=== PATIENT | male | born 1945 | race Caucasian/White ===

== ENCOUNTER 2020-09-11 18:57 | Emergency (ER) | payer MEDICARE, OTHER ==
[~2020-09-11] VITALS: Ht 175.3 cm; Wt 115.0 kg
[~2020-09-11 18:57] MED LIST: HYDR-4353 PO; ONDA8TAB9 PO; SUCR1ORA2 PO
[2020-09-11 19:29] LABS: BASOPHILS # (AUTO) 0.1 X10'3 (0-0.2); BASOPHILS % (AUTO) 0.8 % (0-1); EOSINOPHILS # (AUTO) 0.3 X10'3 (0-0.9); EOSINOPHILS % (AUTO) 3.8 % (0-6); HEMATOCRIT 50.9 % (42.0-52.0); HEMOGLOBIN 17.1 g/dl (14.0-17.9); LYMPHOCYTES # (AUTO) 1.1 X10'3 (1.1-4.8); LYMPHOCYTES % (AUTO) 14.1 % (21-51); MEAN CORPUSCULAR HEMOGLOBIN 30.8 PG (27.0-31.0); MEAN CORPUSCULAR HGB CONC 33.5 g/dL (33.0-36.5); MEAN CORPUSCULAR VOLUME 91.9 FL (78-98); MEAN PLATELET VOLUME 7.1 FL (7.4-10.4); MONOCYTES # (AUTO) 0.8 X10'3 (0-0.9); MONOCYTES % (AUTO) 9.4 % (2-12); NEUTROPHILS # (AUTO) 5.8 X10'3 (1.8-7.7); NEUTROPHILS % (AUTO) 71.9 % (42-75); PLATELET COUNT 188 X10'3 (140-440); RED BLOOD COUNT 5.54 X10'6 (4.70-6.10); RED CELL DISTRIBUTION WIDTH 13.7 % (11.5-14.5)
[2020-09-11 19:55] LABS: ANION GAP 5 (8-16); BLOOD UREA NITROGEN 18 MG/DL (7-18); CHLORIDE 101 MMOL/L (99-107); GLUCOSE 143 MG/DL (70-104); POTASSIUM 4.6 MMOL/L (3.5-5.1); SODIUM 137 MMOL/L (135-145)
[2020-09-11 19:56] LABS: ALANINE AMINOTRANSFERASE 83 U/L (12-78); ALBUMIN 3.6 G/DL (3.4-5.0); ALKALINE PHOSPHATASE 90 IU/L (46-116); ASPARTATE AMINO TRANSFERASE 110 U/L (10-37); BILIRUBIN,TOTAL 0.6 MG/DL (0.1-1.0); BUN/CREATININE RATIO 13.1 (5.4-32.0); CALCIUM 8.8 MG/DL (8.5-10.1); CREATININE 1.37 MG/DL (0.60-1.10); TOTAL PROTEIN 7.3 G/DL (6.4-8.2); eGFR 51 ML/MIN
[2020-09-11 20:12] VITALS: BP 167/98
--- NOTE | 2020-09-11 20:28 | NUR ---
Dr. James at bedside to discuss plan of care with patient.
== END 2020-09-11 20:49 | disposition home or self-care (01) ==
LOC: ER 18:57
DX: R07.89 Other chest pain (principal); I48.91 Unspecified atrial fibrillation; I10 Essential (primary) hypertension; E11.9 Type 2 diabetes mellitus without complications; Z98.890 Other specified postprocedural states; Z72.89 Other problems related to lifestyle; Z79.899 Other long term (current) drug therapy
CPT/HCPCS: 36415; 71045; 80053; 83880; 84484; 85025; 93005; 99285

== ENCOUNTER 2020-11-28 06:59 | Day surgery (SDC) | payer MEDICARE, OTHER, BC ==
[2020-11-21 15:02] LABS: BASOPHILS # (AUTO) 0.1 X10'3 (0-0.2); BASOPHILS % (AUTO) 0.6 % (0-1); EOSINOPHILS # (AUTO) 0.1 X10'3 (0-0.9); EOSINOPHILS % (AUTO) 1.3 % (0-6); LYMPHOCYTES # (AUTO) 2.1 X10'3 (1.1-4.8); LYMPHOCYTES % (AUTO) 20.1 % (21-51); MEAN CORPUSCULAR HEMOGLOBIN 30.4 PG (27.0-31.0); MEAN CORPUSCULAR HGB CONC 33.4 g/dL (33.0-36.5); MEAN PLATELET VOLUME 7.3 FL (7.4-10.4); MONOCYTES # (AUTO) 1.2 X10'3 (0-0.9); NEUTROPHILS # (AUTO) 7.1 X10'3 (1.8-7.7); PRE OP HEMATOCRIT 48.4 % (42.0-52.0); PRE OP HEMOGLOBIN 16.2 g/dL (14.0-17.9); PRE OP PLATELET COUNT 185 X10'3 (140-440); RED BLOOD COUNT 5.31 X10'6 (4.70-6.10); RED CELL DISTRIBUTION WIDTH 14.8 % (11.5-14.5)
[2020-11-21 15:06] LABS: ALBUMIN 3.5 G/DL (3.4-5.0); ALKALINE PHOSPHATASE 63 IU/L (46-116); BLOOD UREA NITROGEN 26 MG/DL (7-18); BUN/CREATININE RATIO 17.9 (5.4-32.0); CALCIUM 9.3 MG/DL (8.5-10.1); CHLORIDE 104 MMOL/L (99-107); CREATININE 1.45 MG/DL (0.60-1.10); PRE OP ALT 40 U/L (30-65); PRE OP ANION GAP 5 (8-16); PRE OP AST 25 U/L (10-37); PRE OP BILIRUB, TOTAL 0.6 MG/DL (0.0-1.0); PRE OP GLUCOSE 118 MG/DL (70-104); PRE OP POTASSIUM 4.5 MMOL/L (3.4-5.1); PRE OP SODIUM 140 MMOL/L (135-145); TOTAL CARBON DIOXIDE 30.8 MMOL/L (24-32); eGFR 47 ML/MIN
[~2020-11-28] VITALS: Ht 175.3 cm; Wt 110.7 kg
[2020-11-28] VITALS (11 sets, daily range): BP systolic 133–185; BP diastolic 70–93
[~2020-11-28 06:59] MED LIST changes: +ASPI-612 PO; +BUPIVAcaine/PF 2.5 mg/ml (0.25%) 30ml vial ONE; +DOCUMENT DATE & TIME OF BETA-BLOCKER PO ONE; +EZET1TAB17 PO; +FEBU80TA PO; +FLEC100T2 PO; +GLIP5TAB13 PO; -HYDR-4353 PO; +INDOCYANINE GREEN 25 MG/10 ML VIAL IV ONE; +LIDOcaine 1% 30ml preserv. free vial ONE; +LOSA100T57 PO; +METF-436 PO; +METO25TA6 PO; -ONDA8TAB9 PO; -SUCR1ORA2 PO; +TEST75GE TOP; +UBIQ100C3 PO; +VITAMIN D3 PO; +ceFAZolin 2gm in dextrose, iso 50 ML IV ONE; +famotidine 20mg tablet PO ONE; +ringers solution, lacted 1,000 ML IV SCH
[2020-11-28] MEDS ORDERED: proCHLORperazine 10 MG/2 ml inj IV PRN (08:10)
[2020-11-28] MEDS ORDERED: ondansetron/PF 4mg/2ml inj IV PRN (08:10)
[2020-11-28] MEDS ORDERED: meperidine/PF 25mg/ml syringe IV PRN ×2 (08:10)
[2020-11-28] MEDS ORDERED: ringers solution, lacted 1,000 ML IV SCH (08:10)
[2020-11-28] MEDS ORDERED: morphine 4 MG/ML inj SYRINge IV PRN (08:10)
[2020-11-28] MEDS ORDERED: morphine 2 MG/ML inj. syringe IV PRN (08:10)
[2020-11-28] MEDS ORDERED: rocuronium 10mg/ml inj IV ONE (09:02)
[2020-11-28] MEDS ORDERED: fentaNYL/PF 50MCG/1 ML 2ML syringe ONE (09:02)
[2020-11-28] MEDS ORDERED: midazolam 2 mg/2 ml injection ONE (09:02)
[2020-11-28] MEDS ORDERED: propofol inj 20 ML IV ONE (09:02)
[2020-11-28] MEDS ORDERED: dexamethasone sod phosphate 4mg/ml inj. ONE (10:38)
[2020-11-28] MEDS ORDERED: ondansetron/PF 4mg/2ml inj ONE (10:38)
[2020-11-28] MEDS ORDERED: HYDROcodone/acetaminophen 10/325mg tab PO PRN (10:55)
[2020-11-28] MEDS ORDERED: glycopyrrolate 0.2mg/ml inj ONE (10:57)
[2020-11-28] MEDS ORDERED: neostigmine methylsulfate 1 MG/ML 10ml vial ONE (10:57)
--- NOTE | 2020-11-28 11:05 | NUR ---
Received from OR via BED , accompanied by Anesthesiologist DR FARRELL and report given by Anesthesiolgist. PATIENT WAKING UP, DENIES PAIN, V/S WNL, NEUROVASCULAR CHECKS INTACT, 20G PIV LUE, SCD ON, BANDAIDS TO LAP SIGHTS OF ABDOMEN CDI.
[2020-11-28] MEDS: meperidine/PF 25mg/ml syringe IV PRN ×2 (11:06→11:34)
--- NOTE | 2020-11-28 12:35 | NUR ---
PATIENT A&OX4,, DENIES PAIN, V/S WNL, NEUROVASCULAR CHECKS INTACT, 20G PIV LUE D/C, SCD OFF, , BANDAIDS TO LAP SIGHTS OF ABDOMEN CDI. SCRIPT FOR [facility]CO GIVEN TO PATIENT. I HAVE REVIEWED D/C INSTRUCTIONS WITH PATIENT AND FAMILY AND THEY HAVE VERBALIZED UNDERSTANDING. PATIENT D/C HOME WITH ALL BELONGINGS AND FAMILY GAVE TRANSPORT HOME.
== END 2020-11-28 12:35 | disposition home or self-care (01) ==
LOC: PAS 06:59
PROVIDERS: ATTEND Surgery
DX: K80.12 Calculus of gallbladder with acute and chronic cholecystitis without obstruction (principal); I10 Essential (primary) hypertension; E11.9 Type 2 diabetes mellitus without complications; M19.90 Unspecified osteoarthritis, unspecified site; I48.91 Unspecified atrial fibrillation; E66.9 Obesity, unspecified; Z68.36 Body mass index [BMI] 36.0-36.9, adult; Z87.442 Personal history of urinary calculi; Z20.822 Contact with and (suspected) exposure to COVID-19; Z79.899 Other long term (current) drug therapy; Z96.643 Presence of artificial hip joint, bilateral; Z98.890 Other specified postprocedural states; Z79.82 Long term (current) use of aspirin; Z79.84 Long term (current) use of oral hypoglycemic drugs; Z82.49 Family history of ischemic heart disease and other diseases of the circulatory system; Z82.61 Family history of arthritis
CPT/HCPCS: 36415; 47563; 80053; 82948; 85025; 87635; 93005; J1100; J2001; J2175; J2250; J2405; J2704; J2710; J3010; J3490; J7120; A4215; A4618; A7000

== ENCOUNTER 2025-03-16 22:08 | Emergency (ER) | payer MEDICARE, BC ==
[~2025-03-16] VITALS: Ht 175.3 cm; Wt 99.1 kg
[~2025-03-16 22:08] MED LIST changes: -BUPIVAcaine/PF 2.5 mg/ml (0.25%) 30ml vial ONE; -DOCUMENT DATE & TIME OF BETA-BLOCKER PO ONE; +EZET-82 PO; -EZET1TAB17 PO; -GLIP5TAB13 PO; +GLIP5TAB23 PO; -INDOCYANINE GREEN 25 MG/10 ML VIAL IV ONE; -LIDOcaine 1% 30ml preserv. free vial ONE; +LOP25T PO; -LOSA100T57 PO; +LOSA100T58 PO; -METO25TA6 PO; +UBIQ100C2 PO; -UBIQ100C3 PO; -ceFAZolin 2gm in dextrose, iso 50 ML IV ONE; -famotidine 20mg tablet PO ONE; -ringers solution, lacted 1,000 ML IV SCH
[2025-03-16 23:43] LABS: UA COLLECTION TYPE CLN CATCH MIDSTREAM
[2025-03-16 23:45] LABS: CLARITY,URINE BLOODY (Clear); COLOR,URINE RED (Yellow)
[2025-03-17 00:02] LABS: BACTERIA,URINE 1+ /HPF (Neg); RBC,URINE TNTC /HPF (0-2); WBC,URINE 0-4 /HPF (0-4)
[2025-03-17 00:03] LABS: SQUAMOUS EPITHELIAL CELL,UR FEW /LPF (FEW)
--- NOTE | 2025-03-17 02:24 | Physician Documentation ---
History of Present Illness ~ Chief Complaint: Blood in Urine Stated Complaint: BLOOD IN URINE Time Seen by MD: 02:24 Primary Medical Doctor: CRISTIAN FLEMING Source: patient HPI 80-year-old male, presenting with hematuria He tells me that this evening, he suddenly had a single episode of hematuria, where his urine was very dark red and bloody. At that time he did not have any abdominal pain, flank pain, fever, nausea, lower abdominal pain or dysuria. When he gave a urine sample here in the ER, he still had blood in his urine. However he urinated again later and it was clear. Currently he denies any lower abdominal pain or other associated symptoms. He does report having a mild viral upper respiratory infection over the past couple of days. He reports a history of hematuria once in the past that was related to a urinary tract infection. At that time he was having stroke-like symptoms and was admitted to the hospital. He is not on blood thinners except for baby aspirin. Medication Reconciliation Allergies: Coded Allergies: No Known Allergies (Unverified , 12/16/14) Scheduled Aspirin (Aspir 81), 1 TAB PO DAILY, (Reported) Ezetimibe/Simvastatin (Vytorin 10-40 Mg Tablet), 1 TAB PO HS, (Reported) Febuxostat (Uloric), 1 TAB PO DAILY, (Reported) Flecainide Acetate (Flecainide Acetate), 1 TABLET PO BID, (Reported) Glipizide (Glipizide), 1 TAB PO DAILY, (Reported) Losartan Potassium (Losartan Potassium), 100 MG PO HS, (Reported) Metformin Hcl (Metformin Hcl), 1 TAB PO Q12H, (Reported) Metoprolol Tartrate* (Lopressor tablet*), 1 TAB PO Q12H, (Reported) Testosterone (Androgel), 40.5 MG TOP DAILY, (Reported) Ubiquinol (Ubiquinol), 100 MG PO DAILY, (Reported) [Vitamin D3], 5,000 UNITS PO DAILY, (Reported) Past Medical History Past Medical History: Atrial Fibrillation, Hypertension, Pancreatitis, Diabetes Past Surgical History: abdominal surgery, orthopedic surgeries Alcohol Use: Other Drug Use: none Lives with: Spouse Lives In: Home Review of Systems Constitutional: Denies: fever Gastrointestinal: Denies: abdominal pain, nausea, vomiting Genitourinary: Reports: hematuria; Denies: dysuria Physical Exam Vital Signs: Temperature: 98.6, Source: Oral, Heart Rate: 68, Respiratory Rate: 16, BP: 155/76, Pulse Oximetry: 96, Weight: 99.090 Oxygen Flow Rate: 0 Physical Exam General: This is a pleasant elderly man, smiling and making jokes, family at bedside HEENT: Atraumatic, oropharynx is moist Heart: Regular rate and rhythm, normal-appearing peripheral perfusion Lungs: normal work of breathing, normal oxygen saturation on room air Abdomen: Soft, nondistended, nontender all quadrants including no suprapubic tenderness Neuro: Alert and oriented, no focal deficits Psychiatric: Calm and cooperative with exam Progress Results/Orders Results/Orders Completed Orders - CATALINA VIERA MD Ua W/Microscopic, Cult If Ind (03/16/25 22:21) Vital Signs 03/16/25 03/17/25 03/17/25 22:16 02:29 02:34 Temp 98.6 98.6 Pulse 68 70 Resp 16 18 16 B/P (MAP) 155/76 142/80 (100) Pulse Ox 96 99 O2 Flow Rate 0 0 Laboratory Tests Test 03/16/25 22:21 Urine Specimen Description Cln catch midstream Urine Color Red Urine Clarity Bloody Urine pH Urine Specific [place] Urine Protein Urine Glucose (UA) Urine Ketones Urine Occult Blood Urine Nitrite Urine Bilirubin Urine Urobilinogen Urine Leukocyte Esterase Urine RBC Tntc Urine WBC 0-4 Urine Squamous Epithelial Cells Few Urine Bacteria 1+ Urine Culture Indicated Not ind Volume Urine Centrifuged 10 ml Urine Comment See note Medical Decision Making Urinary Diff Dx:Considerations: Include: Aortic dissection, Prostatitis, Renal failure, Urolithiasis, Urinary Obstruction, UTI Additional Comment The patient presents with an episode of stan hematuria. By time of my evaluation he is asymptomatic, has no infectious symptoms, abdominal pain, and his urine is now clear. Per his history and exam, no dangerous cause identified for this episode. Urinalysis with hematuria but no significant pyuria or bacteria to suggest infection. Given his lack of other symptoms I doubt bladder infection. He has no symptoms of a kidney stone. Given the improvement of his urine and lack of symptoms I do not feel that any further workup or testing is indicated at this time. He is reassured, and will follow up with his primary care doctor for further evaluation or imaging. He will return if he does develop symptoms of a bladder infection or obstruction. Departure Time of Disposition: 02:39 Disposition: 01 HOME / SELF CARE / HOMELESS Impression: Primary Impression: Hematuria Condition: Improved Discharge Instructions: Hematuria, Adult Referrals: NO PRIMARY CARE PROVIDER (PCP) Education Educated: Patient, Family Educated regarding: diagnosis, treatment, need for follow up Signature Scribe Signature: na Attestation: CATALINA Downs MD March 17, 2025 02:24
[2025-03-17 02:34] VITALS: BP 142/80; PULSE 70; RESP 16; TEMP 98.6; O2SAT 99
== END 2025-03-17 03:18 | disposition home or self-care (01) ==
LOC: ER 22:09
DX: R31.9 Hematuria, unspecified (principal); E11.9 Type 2 diabetes mellitus without complications; I10 Essential (primary) hypertension; I48.91 Unspecified atrial fibrillation; Z79.82 Long term (current) use of aspirin
CPT/HCPCS: 81001; 99284